=== PATIENT | female | born 1965 | race Caucasian/White ===

== ENCOUNTER → 2024-03-24 14:31 | Outpatient (REF) | payer OTHER, SELFPAY | LOC: RAD 14:31 | PROVIDERS: ATTENDING PHYSICIAN Internal Medicine Gastroenterology; FAMILY PHYSICIAN Internal Medicine | DX: K59.00 Constipation, unspecified (principal) | CPT/HCPCS: 74018 ==

== ENCOUNTER → 2024-04-11 06:22 | Day surgery (SDC) | payer OTHER, SELFPAY | LOC: GI 06:22 | PROVIDERS: ATTENDING PHYSICIAN Internal Medicine Gastroenterology | DX: Z12.11 Encounter for screening for malignant neoplasm of colon (principal); D12.3 Benign neoplasm of transverse colon; K56.2 Volvulus; R11.0 Nausea; R63.4 Abnormal weight loss; K31.89 Other diseases of stomach and duodenum; Z86.0101 Personal history of adenomatous and serrated colon polyps | CPT/HCPCS: 45380; 45381; 43239; 88305; 88342 ==

== ENCOUNTER → 2024-04-24 09:08 | Outpatient (REF) | payer OTHER, SELFPAY | LOC: RAD 09:08 | PROVIDERS: ATTENDING PHYSICIAN Internal Medicine Gastroenterology; FAMILY PHYSICIAN Internal Medicine | DX: R15.9 Full incontinence of feces (principal) | CPT/HCPCS: 74270 ==

== ENCOUNTER 2024-05-15 09:34 | Emergency (ER) | payer OTHER, SELFPAY ==
[2024-05-15 09:37] VITALS: BP 160/84
--- NOTE | 2024-05-15 10:22 | ED.GENMED ---
History of Present Illness
General
Chief Complaint: Abdominal Pain
Time Seen by Provider: 05/15/24 09:52
History of Present Illness
History of Present Illness:
59-year-old female with history of colon polyps presenting to the emergency department for left lower quadrant abdominal pain. Patient reports that she has had this pain on and off for several months. She has been following with GI, was diagnosed
with an issue with her internal sphincters. She suffers from constipation, and is on Linzess. Today her pain worsened, had increased pain to the left lower quadrant. Last bowel movement was 2 days ago. Denies nausea or vomiting. Denies fever.
Denies chest pain or breathing. Reports history of a hysterectomy. Also notes history of multiple polyps. Denies additional acute medical complaints
Past History
Past History
ED Past Medical History: Other (Chronic SOB, Migraine); Negative Asthma, HTN, Hypercholesterolemia or NIDDM
ED Past Surgical History: Gynecological (Hysterectomy)
Social History
Tobacco: Non-smoker
Alcohol: None
Personal:
Living: with family
Phy Exam
Physical Exam
Physical Exam:
General: Well-appearing, no clinical signs of dehydration, nontoxic and in no acute distress
HEENT: protecting airway
Neck: appears supple
CV: Normal heart rate
Resp: No accessory muscle use, no increased work of breathing
Abd: Soft and non-distended, mild tenderness to the left lower quadrant without rebound or guarding
Extremities: No deformities, no swelling
Neuro: alert, no focal neurologic deficit
: deferred
Rectal: deferred
Psych: Normal affect
Skin: Intact
Course
Orders/Labs/Results
Orders:
Orders
05/15/24 10:11
CT Abd/pelvis W Iv Cont Urgent
Comment:
Reason For Exam: LLQ pain
05/15/24 11:22
Complete Blood Count/With Diff Urgent
Comprehensive Metabolic Panel Urgent
Lipase Urgent
Urinalysis Reflex To Culture Urgent
Date Specimen was Collected: 05/15/24
Time Specimen was Collected: 11:03
Urine Microscopic Reflex Cult Urgent
Abnormal Lab Results
05/15/24
11:22
MCH 32.5 H pg
(27.0-31.0)
MPV 10.8 H fL
(7.4-10.4)
Leukocyte Esterase Rfl Trace A
(Negative)
05/15/24 11:22
05/15/24 11:22
Vital Signs
Initial and Last Documented VS:
Initial Vital Signs
Temp Pulse Resp BP Pulse Ox
97.9 F 71 18 160/84 100
05/15/24 09:37 05/15/24 09:37 05/15/24 09:37 05/15/24 09:37 05/15/24 09:37
Last Documented Vital Signs
Temp Pulse Resp BP Pulse Ox
97.9 F 71 18 160/84 100
05/15/24 09:37 05/15/24 09:37 05/15/24 09:37 05/15/24 09:37 05/15/24 09:37
MDM/Problems Addressed
MDM/Problems Addressed:
59-year-old female presenting to the emergency department with left lower quadrant abdominal pain. Vital signs on arrival are normal.
On exam patient is well-appearing, no acute distress or discomfort. She is nontoxic in appearance. Mild tenderness to the left lower quadrant without rebound or guarding. Suspect possible mild early diverticulitis versus colitis. For this reason
we will plan for laboratory analysis and CT abdominal imaging.
13:30 -patient's labs are unremarkable. Urine without sign of infection. CT shows evidence of constipation, otherwise no acute pathology. At this time feel stable for discharge with close and will follow-up with her GI doctor and primary care
doctor. Advised stool softeners. Return precautions discussed and patient verbalized understanding
*Critical Care Note
Total Time (30-74mins, 75-104mins- exclusive of procedures): Not Applicable
ED Attending Note
-
Portions of this chart may have been created with voice recognition software.� Occasional wrong word or��sound alike� substitutions may have occurred due to the inherent limitations of voice recognition software.
Discharge Plan
Departure
Prescriptions:
No Action
One Daily Women[facility] 1 EACH tablet
1 ea PO DAILY
cyanocobalamin (vitamin B-12) 2,000 MCG tablet
2,000 mcg PO DAILY
sumatriptan succinate 25 MG tablet
25 mg PO DIRECTED PRN (Reason: MIGRAINES)
simethicone [Gas-X Extra Strength] 125 MG tablet,chewable
125 mg PO DIRECTED
bisacodyl 5 MG tablet,delayed release (DR/EC)
10 mg PO NOW
polyethylene glycol 3350 238 GM powder
238 gm PO DIRECTED
Referrals:
Guillermo Silva MD [Family Provider] -
Interventions
Interventions:
*Risk Screen - Suicide Last Done: 05/15/24 09:37
*General Assessment Last Done: 05/15/24 09:37
*ED COVID-19 Vaccine History Last Done: 05/15/24 09:37
Discharge Date and Time
Print Language: LIBERIAN
[2024-05-15 11:07] VITALS: BMI 21.4
[2024-05-15 11:55] LABS: % Basophils 0.6 % (0-2); % Eosinophils 1.8 % (0-6); % Immature Granulocytes 0.3 % (0-0.5); % Lymphocytes 27.9 % (20.5-51.1); % Monocytes 6.4 % (1.7-9.3); Absolute Eosinophils 0.1 10^3/uL (0-0.7); Absolute Lymphocytes 1.9 10^3/uL (1.2-3.4); Absolute Monocytes 0.4 10^3/uL (0.1-0.6); Absolute Neutrophils 4.3 10^3/uL (1.4-6.5); Hematocrit 39.1 % (37.0-47.0); Hemoglobin 13.9 g/dL (12.0-16.0); Mean Corp Hgb Conc. 35.5 g/dL (33.0-37.0); Mean Corpuscular Hgb 32.5 pg (27.0-31.0); Mean Corpuscular Volume 91.4 fL (81.0-99.0); Mean Platelet Volume 10.8 fL (7.4-10.4); Nucleated Red Blood Cells % 0 %; Platelet Count 223 10^3/uL (130-400); Red Blood Cell Count 4.28 10^6/uL (4.20-5.40); Red Cell Dist. Width 12.4 % (11.5-14.5); White Blood Cell Count 6.8 10^3/uL (4.8-10.8)
[2024-05-15 11:56] LABS: Urine Albumin Negative (Neg - Trace); Urine Bilirubin Negative (Negative); Urine Character Clear (Clear); Urine Color Yellow; Urine Glucose Negative (Negative); Urine Ketone Negative (Negative); Urine Leukocyte Trace (Negative); Urine Nitrite Negative (Negative); Urine Occult Blood Negative (Negative); Urine Urobilinogen Negative (Neg - 1+)
[2024-05-15 12:05] LABS: ALT (SGPT) 20 U/L (0-35); AST (SGOT) 23 U/L (14-36); Albumin 4.4 g/dl (3.5-5.0); Alkaline Phosphatase 58 U/L (38-126); Blood Urea Nitrogen 16 mg/dl (7-17); Calcium 9.3 mg/dl (8.4-10.2); Carbon Dioxide 28 mmol/L (22-30); Chloride 105 mmol/L (98-107); Estimated Creatinine Clearance 92 ml/min; Glucose 89 mg/dl (70-99); Lipase 88 U/L (23-300); Potassium 3.7 mmol/L (3.5-5.1); Sodium 144 mmol/L (135-145); Total Bilirubin 0.7 mg/dl (0.2-1.3); Total Protein 6.7 g/dl (6.3-8.2); eGFR > 60.00
[2024-05-15 12:17] VITALS: BP 154/88
[2024-05-15 12:51] LABS: Urine Amorphous Seen; Urine Red Blood Cell 0-2 /HPF (0-2)
[2024-05-15 14:00] VITALS: BP 151/93
== END 2024-05-15 14:18 | disposition home or self-care (01) ==
LOC: EMR 09:34
PROVIDERS: EMERGENCY PHYSICIAN Student in an Organized Health Care Education/Training Program; FAMILY PHYSICIAN Internal Medicine
DX: R10.32 Left lower quadrant pain (principal); K59.00 Constipation, unspecified
CPT/HCPCS: 99284; 74177; 80053; 81003; 81015; 83690; 85025; Q9967

== ENCOUNTER 2024-06-03 07:15 | Outpatient (RCR) | payer OTHER, SELFPAY | END 2024-06-03 23:59 | disposition home or self-care (01) | LOC: RPT 07:15 | PROVIDERS: ATTENDING PHYSICIAN Internal Medicine Gastroenterology; FAMILY PHYSICIAN Internal Medicine | DX: R15.2 Fecal urgency (principal); K59.00 Constipation, unspecified; Z73.6 Limitation of activities due to disability; M62.81 Muscle weakness (generalized) | CPT/HCPCS: 97112; 97162; 97530 ==

== ENCOUNTER → 2024-06-04 17:50 | Outpatient (REF) | payer OTHER, SELFPAY | LOC: WDC 17:50 | PROVIDERS: ATTENDING PHYSICIAN Nurse Practitioner | DX: Z12.31 Encounter for screening mammogram for malignant neoplasm of breast (principal) | CPT/HCPCS: 77063; 77067 ==

== ENCOUNTER 2024-08-29 06:16 | Day surgery (SDC) | payer OTHER, SELFPAY ==
[2024-08-29 07:00] VITALS: BMI 19.2
[2024-08-29 07:15] VITALS: BP 138/85
[2024-08-29 07:23] VITALS: BMI 19.2
[2024-08-29 09:43] VITALS: BP 140/82
[2024-08-29 10:00] VITALS: BP 118/71
[2024-08-29 10:15] VITALS: BP 140/80
== END 2024-08-29 10:30 | disposition home or self-care (01) ==
LOC: GI 06:16
PROVIDERS: ATTENDING PHYSICIAN Internal Medicine Gastroenterology
DX: D12.3 Benign neoplasm of transverse colon (principal); D12.4 Benign neoplasm of descending colon; K64.0 First degree hemorrhoids
CPT/HCPCS: 45390; 88305

== ENCOUNTER → 2024-09-30 09:51 | Outpatient (REF) | payer OTHER, SELFPAY | LOC: HWRAD 09:51 | PROVIDERS: ATTENDING PHYSICIAN Internal Medicine Gastroenterology; FAMILY PHYSICIAN Internal Medicine | DX: R63.4 Abnormal weight loss (principal) | CPT/HCPCS: 74176 ==

== ENCOUNTER 2025-03-27 06:06 | Day surgery (SDC) | payer OTHER, SELFPAY ==
[2025-03-27 07:47] VITALS: BMI 17.7
[2025-03-27 08:13] VITALS: BP 119/85
[2025-03-27 12:00] VITALS: BP 142/83
[2025-03-27 12:15] VITALS: BP 135/72
[2025-03-27 12:30] VITALS: BP 135/72
== END 2025-03-27 13:23 | disposition home or self-care (01) ==
LOC: GI 06:06
PROVIDERS: ATTENDING PHYSICIAN Internal Medicine Gastroenterology
DX: Z12.11 Encounter for screening for malignant neoplasm of colon (principal); K63.89 Other specified diseases of intestine; Q43.8 Other specified congenital malformations of intestine; K64.0 First degree hemorrhoids; Z86.0101 Personal history of adenomatous and serrated colon polyps; Z98.890 Other specified postprocedural states
CPT/HCPCS: 45380; 88305; C1726